=== PATIENT | male | born 1985 | race African-American/Black ===

== ENCOUNTER 2020-08-27 08:42 | Emergency (ER) | payer MEDICAID, OTHER ==
[~2020-08-27] VITALS: Ht 167.6 cm; Wt 69.0 kg
[~2020-08-27 08:42] MED LIST: ASPI-867 PO; ATOR40TA70 PO; CARV6.2548 PO; FURO20TA4 PO; LISI2.5T47 PO; METH10TA7 PO; PROM473S4 PO
[2020-08-27] MEDS ORDERED: ASPIRIN 81MG TABLET PO ONE (09:15)
[2020-08-27] MEDS ORDERED: NITROGLYCERIN 0.4MG TABLET SL SL PRN (09:15)
[2020-08-27 09:27] LABS: BASOPHILS % 0.4 % (0.0-2.0); EOSINOPHILS % 0.3 % (0.0-5.0); HEMATOCRIT. 44.6 % (42.0-52.0); LYMPHOCYTES % 14.6 % (20.0-50.0); MEAN CORPUSCULAR HEMOGLOBIN 31.8 pg (28.0-32.0); MEAN CORPUSCULAR VOLUME 94.6 fL (80.0-94.0); MEAN PLATELET VOLUME 10.7 fl (7.4-10.4); MONOCYTES % 9.6 % (2.0-8.0); NEUTROPHILS % 75.1 % (40.0-76.0); PLATELET 96 x1000/uL (130-400); RED BLOOD CELL COUNT 4.72 mill/uL (4.7-6.1); RED CELL DISTRIBUTION WIDTH 16.8 % (11.6-14.6)
[2020-08-27 09:32] LABS: CHLORIDE 89 mEq/L (98-107)
[2020-08-27] MEDS ORDERED: FUROSEMIDE 40MG/4ML VIAL IVP NR (10:15)
[2020-08-27 14:20] VITALS: BP 111/72
== END 2020-08-27 14:30 | disposition short-term general hospital (02) ==
LOC: ER 08:52
DX: I50.9 Heart failure, unspecified (principal); E87.8 Other disorders of electrolyte and fluid balance, not elsewhere classified; R74.01 Elevation of levels of liver transaminase levels; I25.2 Old myocardial infarction; J45.909 Unspecified asthma, uncomplicated; E11.9 Type 2 diabetes mellitus without complications; G40.909 Epilepsy, unspecified, not intractable, without status epilepticus; Z86.73 Personal history of transient ischemic attack (TIA), and cerebral infarction without residual deficits; Z95.810 Presence of automatic (implantable) cardiac defibrillator; Z79.82 Long term (current) use of aspirin
CPT/HCPCS: 36415; 71045; 80053; 82962; 83880; 84484; 85025; 93005; 96374; 99285; J1940

== ENCOUNTER 2021-01-15 15:45 | Inpatient (IN) | payer MEDICARE, MEDICAID ==
[~2021-01-15] VITALS: Ht 170.2 cm; Wt 87.2 kg
[2021-01-15 17:24] LABS: HEMATOCRIT. 29.4 % (42.0-52.0); HEMOGLOBIN. 9.9 g/dL (14.0-18.0); MEAN CORPUSCULAR HEMOGLOBIN 29.8 pg (28.0-32.0); MEAN CORPUSCULAR VOLUME 88.9 fL (80.0-94.0); MEAN PLATELET VOLUME 7.5 fl (7.4-10.4); PLATELET 261 x1000/uL (130-400); RED CELL DISTRIBUTION WIDTH 22.1 % (11.6-14.6)
[2021-01-15 17:31] LABS: CHLORIDE 107 mEq/L (98-107)
[2021-01-15 17:33] LABS: INR 1.7; PROTHROMBIN TIME 17.7 sec (9.6-11.0)
[2021-01-15 17:37] LABS: CLARITY URINE CLEAR (CLEAR); COLOR URINE DARK YELLOW (YELLOW); KETONES URINE TRACE (NEGATIVE); LEUKOCYTE ESTERASE URINE NEGATIVE (NEGATIVE); NITRITE URINE NEGATIVE (NEGATIVE); OCCULT BLOOD URINE NEGATIVE (NEGATIVE); PH URINE 5.5 (4.5-8.0); PROTEIN URINE 1+ (NEGATIVE); SPECIFIC GRAVITY URINE 1.035 (1.005-1.030)
[2021-01-15 18:08] LABS: PLATELET ESTIMATE NORMAL
[2021-01-15] MEDS ORDERED: PIPERACILLIN/TAZ 3.375G PREMIX 50 ML IV ONE (19:30)
[2021-01-16] MEDS ORDERED: HYDROCODONE/ACETAMINOPHEN 5/325MG TABLET PO PRN (12:30)
[2021-01-16] MEDS ORDERED: LORAZEPAM 0.5MG TABLET PO PRN (12:30)
[2021-01-16] MEDS ORDERED: ACETAMINOPHEN 650MG SUPP PR PRN (12:30)
[2021-01-16] MEDS ORDERED: NA PHOS,M-B/NA PHOS,DI-BA ENEMA 118ML PR PRN (12:30)
[2021-01-16] MEDS ORDERED: ONDANSETRON HCL 4MG/2ML INJ IV PRN (12:30)
[2021-01-16] MEDS ORDERED: IPRATROPIUM/ALBUTEROL 0.5-3(2.5)MG/3ML NEB NEB PRN (12:30)
[2021-01-16] MEDS ORDERED: GUAIFENESIN 200MG/10ML SUGAR FREE UDC PO PRN (12:30)
[2021-01-16] MEDS ORDERED: CLONIDINE 0.1MG TABLET PO PRN (12:30)
[2021-01-16] MEDS ORDERED: MAGNESIUM/ALUMINUM HYDROXIDE/SIMETHICONE 30ML UDC PO PRN (12:30)
[2021-01-16] MEDS ORDERED: DIPHENHYDRAMINE 50MG/ML VIAL IV PRN (12:30)
[2021-01-16] MEDS ORDERED: DOCUSATE SODIUM 100MG CAPSULE PO PRN (12:30)
[2021-01-16] MEDS ORDERED: ACETAMINOPHEN 325MG TABLET PO PRN (12:30)
[2021-01-16] MEDS ORDERED: CEFTRIAXONE 1 G PREMIX 50 ML IV SCH (12:30)
[2021-01-16] MEDS ORDERED: MIDODRINE HCL 5MG TABLET PO NR (12:45)
[2021-01-16] MEDS ORDERED: FUROSEMIDE 40MG/4ML VIAL IVP NR (12:45)
[2021-01-16] MEDS ORDERED: NALOXONE HCL 0.4MG/ML VIAL IV PRN (12:45)
[2021-01-16] MEDS: AZITHROMYCIN 500 MG in DEXT 5% WATER 250 ML IV SCH (13:21)
[2021-01-16 14:29] LABS: BG BASE EXCESS -5.3 mmol/L (-2.0-2.0); BG CARBOXYHEMOGLOBIN 0.3 % (0.5-1.5); BG DEOXYHEMOGLOBIN 4.6 % (0.0-5.0); BG FRACTION INSPIRED OXYGEN 44; BG HCO3 ACT 18.7 mmol/L (22.0-26.0); BG METHEMOGLOBIN 0.3 % (0.0-1.5); BG OXYGEN SATURATION 95.4 % (92.0-98.5); BG OXYHEMOGLOBIN 94.8 % (94.0-97.0); BG PCO2 31.5 mmHg (35.0-45.0); BG PH 7.392 (7.350-7.450); BG PO2 81.2 mmHg (75.0-100.0); BG SAMPLE SITE RIGHT RADIAL; BG TOTAL HEMOGLOBIN 11.1 g/dL (12.0-18.0); BG VENT MODE NASAL CANNULA
[2021-01-16] MEDS: CARVEDILOL 6.25 MG TABLET PO SCH (17:00)
[2021-01-16] MEDS ORDERED: FUROSEMIDE 40MG/4ML VIAL IV SCH (17:15)
[2021-01-16] MEDS: MIDODRINE HCL 5MG TABLET PO SCH (17:35)
[2021-01-16] MEDS: CEFTRIAXONE 1,000 MG in DEXTROSE 5% WATER 50 ML IV SCH (17:35)
[2021-01-16 20:52] LABS: BASOPHILS % 0.8 % (0.0-2.0); EOSINOPHILS % 1.2 % (0.0-5.0); HEMATOCRIT. 27.5 % (42.0-52.0); HEMOGLOBIN. 9.4 g/dL (14.0-18.0); LYMPHOCYTES % 7.5 % (20.0-50.0); MEAN CORPUSCULAR HEMOGLOBIN 30.7 pg (28.0-32.0); MEAN CORPUSCULAR VOLUME 89.4 fL (80.0-94.0); MEAN PLATELET VOLUME 6.9 fl (7.4-10.4); MONOCYTES % 13.7 % (2.0-8.0); NEUTROPHILS % 76.8 % (40.0-76.0); PLATELET 245 x1000/uL (130-400); RED BLOOD CELL COUNT 3.07 mill/uL (4.7-6.1); RED CELL DISTRIBUTION WIDTH 21.6 % (11.6-14.6)
[2021-01-16 20:56] LABS: CHLORIDE 105 mEq/L (98-107)
[2021-01-16 21:08] LABS: INR 1.8; PARTIAL THROMBOPLASTIN TIME 36.3 sec (23.4-31.0)
[2021-01-16 21:20] LABS: CREATINE KINASE 49 IU/L (39-308)
[2021-01-16 21:21] LABS: CREATINE KINASE MB FRACTION < 1.0 ng/mL (0.5-3.6)
[2021-01-16] MEDS ORDERED: DOBUTAMINE 250MG PREMIX 250 ML IV SCH (21:30)
[2021-01-16] MEDS: FAMOTIDINE 20MG TABLET PO SCH (21:40)
[2021-01-16] MEDS: ATORVASTATIN CALCIUM 40MG TABLET PO SCH (21:40)
[2021-01-17] VITALS (39 sets, daily range): BP systolic 75–121; BP diastolic 44–79
[2021-01-17] MEDS: LISINOPRIL 2.5MG TABLET PO SCH (09:00)
[2021-01-17] MEDS ORDERED: DOBUTAMINE 500MG PREMIX 250 ML IV SCH (09:00)
[2021-01-17] MEDS ORDERED: FUROSEMIDE 40MG/4ML VIAL IVP SCH (09:00)
[2021-01-17] MEDS: CARVEDILOL 6.25 MG TABLET PO SCH ×2 (09:00→16:33)
[2021-01-17] MEDS ORDERED: DOBUTAMINE 500 MG in DEXT 5% WATER 210 ML IV SCH ×3 (09:15→16:17)
[2021-01-17] MEDS: MIDODRINE HCL 5MG TABLET PO SCH ×3 (11:17→16:33)
[2021-01-17 12:10] LABS: HEMATOCRIT. 29.5 % (42.0-52.0); HEMOGLOBIN. 9.4 g/dL (14.0-18.0); MEAN CORPUSCULAR HEMOGLOBIN 29.2 pg (28.0-32.0); MEAN CORPUSCULAR VOLUME 91.6 fL (80.0-94.0); MEAN PLATELET VOLUME 7.1 fl (7.4-10.4); PLATELET 248 x1000/uL (130-400); RED BLOOD CELL COUNT 3.22 mill/uL (4.7-6.1); RED CELL DISTRIBUTION WIDTH 22.1 % (11.6-14.6)
[2021-01-17 12:20] LABS: INR 1.7; PROTHROMBIN TIME 17.3 sec (9.6-11.0)
[2021-01-17 12:22] LABS: CHLORIDE 106 mEq/L (98-107)
[2021-01-17 12:32] LABS: T4 FREE 1.55 ng/dL (0.76-1.46)
[2021-01-17 12:33] LABS: CREATINE KINASE MB FRACTION < 1.0 ng/mL (0.5-3.6)
[2021-01-17 12:36] LABS: HDL CHOLESTEROL 21 mg/dL (40-59)
[2021-01-17 12:37] LABS: LDL CHOLESTEROL 44 mg/dL (5-100)
[2021-01-17 12:38] LABS: CREATINE KINASE 47 IU/L (39-308)
[2021-01-17] MEDS: AZITHROMYCIN 500 MG in DEXT 5% WATER 250 ML IV SCH (13:59)
[2021-01-17] MEDS: CEFTRIAXONE 1,000 MG in DEXTROSE 5% WATER 50 ML IV SCH (13:59)
[2021-01-17] MEDS ORDERED: SODIUM POLYSTYRENE SULFONATE 15 G/60 ML BOT PO SCH (15:00)
[2021-01-17] MEDS ORDERED: PHENYLEPHRINE 100 MG in DEXT 5% WATER 240 ML IV PRN (15:30)
[2021-01-17 15:41] LABS: BG BASE EXCESS -14.8 mmol/L (-2.0-2.0); BG FRACTION INSPIRED OXYGEN 100; BG HCO3 ACT 10.4 mmol/L (22.0-26.0); BG PCO2 24.3 mmHg (35.0-45.0); BG PH 7.251 (7.350-7.450); BG PO2 91.6 mmHg (75.0-100.0); BG SAMPLE SITE RIGHT RADIAL; BG VENT MODE MASK - NRB
[2021-01-17] MEDS ORDERED: SODIUM BICARBONATE 8.4% 1 MEQ/ML 50ML SYR IV NR (15:45)
[2021-01-17] MEDS ORDERED: SODIUM BICARBONATE 8.4% 1 MEQ/ML 50ML SYR IV ONE (15:49)
[2021-01-17] MEDS ORDERED: FUROSEMIDE 40MG/4ML VIAL IVP NR (16:15)
[2021-01-17] MEDS ORDERED: DOBUTAMINE IV SCH (16:30)
[2021-01-17] MEDS: DOPAMINE 800MG PREMIX (DOUBLE) 250 ML IV PRN (17:02)
[2021-01-17 17:13] LABS: BG BASE EXCESS -3.6 mmol/L (-2.0-2.0); BG CARBOXYHEMOGLOBIN 0.1 % (0.5-1.5); BG DEOXYHEMOGLOBIN 0.3 % (0.0-5.0); BG FRACTION INSPIRED OXYGEN 100; BG HCO3 ACT 20.9 mmol/L (22.0-26.0); BG METHEMOGLOBIN 0.3 % (0.0-1.5); BG OXYGEN SATURATION 99.7 % (92.0-98.5); BG OXYHEMOGLOBIN 99.3 % (94.0-97.0); BG PCO2 35.5 mmHg (35.0-45.0); BG PH 7.387 (7.350-7.450); BG PO2 451.3 mmHg (75.0-100.0); BG SAMPLE SITE RIGHT RADIAL; BG TOTAL HEMOGLOBIN 10.3 g/dL (12.0-18.0); BG VENT MODE MASK - BIPAP
[2021-01-17 17:53] LABS: PLATELET ESTIMATE NORMAL
[2021-01-17 20:57] LABS: *AMPHETAMINES SCREEN URINE NEGATIVE (NEGATIVE); *BARBITURATES SCREEN URINE NEGATIVE (NEGATIVE); *BENZODIAZEPINES SCREEN URINE NEGATIVE (NEGATIVE); *COCAINE SCREEN URINE NEGATIVE (NEGATIVE)
[2021-01-17 20:58] LABS: CANNABINOID URINE SCREEN NEGATIVE (NEGATIVE); METHADONE URINE SCREEN NEGATIVE (NEGATIVE); OPIATES URINE SCREEN NEGATIVE (NEGATIVE); PHENCYCLIDINE URINE SCREEN NEGATIVE (NEGATIVE)
[2021-01-17] MEDS: FUROSEMIDE 40MG/4ML VIAL IVP SCH (21:26)
[2021-01-17] MEDS: FAMOTIDINE 20MG TABLET PO SCH (21:26)
[2021-01-17] MEDS: ATORVASTATIN CALCIUM 40MG TABLET PO SCH (21:26)
[2021-01-18] VITALS (75 sets, daily range): BP systolic 70–157; BP diastolic 43–100
[2021-01-18] MEDS: FUROSEMIDE 40MG/4ML VIAL IVP SCH ×3 (03:23→13:54)
[2021-01-18] MEDS: DOBUTAMINE 250 MG PREMIX 250 ML IV SCH ×2 (03:25→12:24)
[2021-01-18 05:52] LABS: HEMATOCRIT. 29.3 % (42.0-52.0); HEMOGLOBIN. 9.9 g/dL (14.0-18.0); MEAN CORPUSCULAR HEMOGLOBIN 29.6 pg (28.0-32.0); MEAN CORPUSCULAR VOLUME 88.1 fL (80.0-94.0); MEAN PLATELET VOLUME 7.1 fl (7.4-10.4); PLATELET 266 x1000/uL (130-400); RED BLOOD CELL COUNT 3.33 mill/uL (4.7-6.1)
[2021-01-18 05:59] LABS: CHLORIDE 104 mEq/L (98-107)
[2021-01-18] MEDS ORDERED: VECURONIUM BROMIDE 10 MG/VIAL IV ONE (08:53)
[2021-01-18] MEDS ORDERED: ETOMIDATE 2MG/ML 10ML VIAL IV ONE ×2 (08:53→09:00)
[2021-01-18] MEDS ORDERED: SODIUM CHLORIDE 0.9% 10ML VIAL ONE (08:53)
[2021-01-18] MEDS ORDERED: SUCCINYLCHOLINE CHLORIDE 200MG/10ML IV ONE (09:00)
[2021-01-18] MEDS ORDERED: CALCIUM CHLORIDE 1GM/10ML SYR IV ONE (09:11)
[2021-01-18] MEDS ORDERED: SODIUM BICARBONATE 8.4% 1 MEQ/ML 50ML SYR IV ONE (09:11)
[2021-01-18] MEDS ORDERED: EPINEPHRINE 0.1MG/ML (1:10,000) 10ML SYR ONE (09:11)
[2021-01-18] MEDS ORDERED: DEXTROSE 50% WATER 50ML SYRINGE IV ONE (09:11)
[2021-01-18 09:34] LABS: PLATELET ESTIMATE NORMAL
[2021-01-18] MEDS: CARVEDILOL 6.25 MG TABLET PO SCH ×2 (10:44→18:34)
[2021-01-18] MEDS: LISINOPRIL 2.5MG TABLET PO SCH (10:44)
[2021-01-18] MEDS: MIDODRINE HCL 5MG TABLET PO SCH ×3 (10:45→18:34)
[2021-01-18 11:09] LABS: BG BASE EXCESS 2.3 mmol/L (-2.0-2.0); BG CARBOXYHEMOGLOBIN 0.1 % (0.5-1.5); BG DEOXYHEMOGLOBIN 6.2 % (0.0-5.0); BG HCO3 ACT 27.9 mmol/L (22.0-26.0); BG METHEMOGLOBIN 0.3 % (0.0-1.5); BG OXYGEN SATURATION 93.8 % (92.0-98.5); BG OXYHEMOGLOBIN 93.4 % (94.0-97.0); BG PCO2 48.2 mmHg (35.0-45.0); BG PH 7.381 (7.350-7.450); BG PO2 74.3 mmHg (75.0-100.0); BG SAMPLE SITE RIGHT RADIAL; BG TOTAL HEMOGLOBIN 10.7 g/dL (12.0-18.0); BG VENT MODE NASAL CANNULA
[2021-01-18] MEDS: CEFTRIAXONE 1,000 MG in DEXTROSE 5% WATER 50 ML IV SCH (13:55)
[2021-01-18] MEDS: AZITHROMYCIN 500 MG in DEXT 5% WATER 250 ML IV SCH (13:56)
[2021-01-18] MEDS: DOPAMINE 800MG PREMIX (DOUBLE) 250 ML IV PRN (20:26)
== END 2021-01-18 20:34 | DRG 291 ==
LOC: ER 16:27 → EDBEDREQSVC 17:11 → MICUSO 19:24 → EDBEDREQ 20:19 → EDBEDREQTM 20:19 → 5EST 01-17 07:23 → CVICU 01-17 16:15
PROVIDERS: ADMIT Internal Medicine; ATTEND Internal Medicine
PROC: 0W993ZZ Drainage of Right Pleural Cavity, Percutaneous Approach (ICD-10-PCS; principal; 2021-01-16)
PROC: 5A09357 Assistance with Respiratory Ventilation, Less than 24 Consecutive Hours, Continuous Positive Airway Pressure (ICD-10-PCS; 2021-01-17)
PROC: 5A09357 Assistance with Respiratory Ventilation, Less than 24 Consecutive Hours, Continuous Positive Airway Pressure (ICD-10-PCS; 2021-01-18)
PROC: 05H333Z Insertion of Infusion Device into Right Innominate Vein, Percutaneous Approach (ICD-10-PCS; 2021-01-18)
PROC: 0BH17EZ Insertion of Endotracheal Airway into Trachea, Via Natural or Artificial Opening (ICD-10-PCS; 2021-01-18)
DX: I50.21 Acute systolic (congestive) heart failure (principal); J96.01 Acute respiratory failure with hypoxia; J18.9 Pneumonia, unspecified organism; J91.8 Pleural effusion in other conditions classified elsewhere; E87.1 Hypo-osmolality and hyponatremia; D68.9 Coagulation defect, unspecified; J45.901 Unspecified asthma with (acute) exacerbation; I43 Cardiomyopathy in diseases classified elsewhere; E87.5 Hyperkalemia; E80.6 Other disorders of bilirubin metabolism; Z20.822 Contact with and (suspected) exposure to COVID-19; E05.90 Thyrotoxicosis, unspecified without thyrotoxic crisis or storm; I46.9 Cardiac arrest, cause unspecified; G40.909 Epilepsy, unspecified, not intractable, without status epilepticus; D64.9 Anemia, unspecified; Z95.810 Presence of automatic (implantable) cardiac defibrillator; Z99.81 Dependence on supplemental oxygen; Z91.19 Patient's noncompliance with other medical treatment and regimen; Z82.49 Family history of ischemic heart disease and other diseases of the circulatory system; Z86.73 Personal history of transient ischemic attack (TIA), and cerebral infarction without residual deficits; I25.2 Old myocardial infarction; Z79.82 Long term (current) use of aspirin; Z79.899 Other long term (current) drug therapy; R00.0 Tachycardia, unspecified
CPT/HCPCS: 32555; 36415; 36600; 71045; 76705; 76937; 78580; 80048; 80053; 80061; 80305; 81003; 82375; 82550; 82553; 82805; 82962; 83036; 83605; 83615; 83880; 84145; 84439; 84443; 84478; 84484; 85025; 86850; 86900; 87186; 88108; 88312; 93005; 93306; 93970; 97162; 99291; C1725; J0330; J0456; J0696; J1250; J1265; J1940; J2543; J3490; J7040; J7060; U0003; U0005